=== PATIENT | female | born 1990 | race Caucasian/White ===

== ENCOUNTER 2019-12-11 02:07 | Emergency (ER) | payer BC ==
[2019-12-11] MEDS ORDERED: Sodium Chloride 0.9% 1000 ML 1,000 ML IV STA (02:29)
[2019-12-11] MEDS ORDERED: Hydromorphone 1 mg/ml Ampule IV ONE ×2 (02:29→04:33)
[2019-12-11] MEDS ORDERED: PROTONIX 40 MG IV IV ONE ×2 (02:29→02:35)
[2019-12-11] MEDS ORDERED: Zofran 4 MG/2 ML VIAL IV ONE (02:29)
[2019-12-11] MEDS ORDERED: Sodium Chloride 0.9% 1000 ML 1,000 ML ONE (02:35)
[2019-12-11] MEDS ORDERED: Hydromorphone 1 mg/ml Ampule ONE ×2 (02:35→04:38)
[2019-12-11] MEDS ORDERED: Zofran 4 MG/2 ML VIAL ONE (02:35)
--- NOTE | 2019-12-11 02:37 | ERPHSYRPT ---
- History of Present Illness Time Seen by Provider: 12/11/19 02:30 Patient Subjective Stated Complaint: PT STATES SHE HAS HAD BACK PAIN AND ABDOMINAL PAIN FOR THE LAST WEEK, IT HAS GOTTEN WORSE TONIGHT SO SHE CALLED THE AMBULANCE BECAUSE SHE WAS NOT ABLE TO GET COMFORTABLE. PT STATES SHE HAD VOMITED CLEAR LIQUID, STATES THAT SHE HAD BLOOD IN HER STOOL 1 WEEK AGO Triage Nursing Assessment: PT ALERT AND ORIENTED, MOVING ALL OVER BED STATES THAT SHE CANT GET COMFORTABLE/PAIN RATED 10/10 Physician History: patient is a 29 year old female who presents with severe epigastric pain going through to the back for four and half-hour. Timing/Duration: hour(s) (4.5) Activities at Onset: none Quality: cramping, sharpness, stabbing Abdominal Pain Onset Location: epigastric Pain Radiation: back Severity of Pain-Max: severe Severity of Pain-Current: severe Modifying Factors: Improves With: nothing Associated Symptoms: back, nausea Previous symptoms: no prior history Allergies/Adverse Reactions: clams Allergy (Verified 12/11/19 02:23) iodine Allergy (Verified 12/11/19 02:23) Latex, Natural Rubber Allergy (Verified 12/11/19 02:23) silicone Allergy (Verified 12/11/19 02:23) - Review of Systems Constitutional: No Fever, No Chills Eyes: No Symptoms Ears, Nose, & Throat: No Symptoms Respiratory: No Cough, No Dyspnea Cardiac: No Chest Pain, No Edema, No Syncope Abdominal/Gastrointestinal: Abdominal Pain, Nausea, Vomiting, No Diarrhea Genitourinary Symptoms: No Dysuria Musculoskeletal: No Back Pain, No Neck Pain Skin: No Rash Neurological: No Dizziness, No Focal Weakness, No Sensory Changes Psychological: No Symptoms Endocrine: No Symptoms All Other Systems: Reviewed and Negative - Past Medical History Pertinent Past Medical History: Yes Other Medical History: KIDNEY STONES - Past Surgical History Past Surgical History: Yes Other Surgical History: TUBAL LIGATION - Social History Smoking Status: Never smoker Exposure to second hand smoke: No Drug Use: none - Female History Hx Now: No - Nursing Vital Signs Nursing Vital Signs: Initial Vital Signs Temperature 97.2 F 12/11/19 02:10 Pulse Rate 61 12/11/19 02:10 Respiratory Rate 18 12/11/19 02:10 Blood Pressure 132/80 12/11/19 02:10 O2 Sat by Pulse Oximetry 97 12/11/19 02:10 Pain Scale Pain Intensity 10 - Physical Exam General Appearance: moderate distress, alert Eye Exam: PERRL/EOMI, eyes nml inspection Ears, Nose, Throat Exam: normal ENT inspection, pharynx normal, moist mucous membranes Neck Exam: normal inspection, non-tender, supple, full range of motion Respiratory Exam: normal breath sounds, lungs clear, No respiratory distress Cardiovascular Exam: regular rate/rhythm, normal heart sounds Gastrointestinal/Abdomen Exam: soft, tenderness, guarding, No mass Pelvic Exam: deferred Back Exam: normal inspection, normal range of motion, No CVA tenderness, No vertebral tenderness Extremity Exam: normal inspection, normal range of motion, pelvis stable Neurologic Exam: alert, oriented x 3, cooperative, normal mood/affect, nml cerebellar function, sensation nml, No motor deficits Skin Exam: normal color, warm, dry SpO2: 97 - Course Nursing assessment & vital signs reviewed: Yes - CT Exams Abdomen/Pelvis CT Interpretation: Tele-radiologist Report Ordered Tests: Active Orders 24 hr Category Date Time Status EKG-ER Only STAT Care 12/11/19 02:29 Active IV Insertion STAT Care 12/11/19 02:29 Active ABDOMEN AND PELVIS W/0 CONTRAS [CT] Stat Exams 12/11/19 02:30 Taken CHEST 1 VIEW (PORTABLE) Stat Exams 12/11/19 02:30 Taken AMYLASE Stat Lab 12/11/19 03:08 Completed CBC W DIFF Stat Lab 12/11/19 03:08 Completed CMP Stat Lab 12/11/19 03:08 Completed HCG QUALITATIVE,SERUM Stat Lab 12/11/19 03:08 Completed LIPASE Stat Lab 12/11/19 03:08 Completed Lactic Acid Stat Lab 12/11/19 03:10 Completed PROTIME WITH INR Stat Lab 12/11/19 03:08 Completed TROPONIN Q3H Lab 12/11/19 03:08 Completed TROPONIN Q3H Lab 12/11/19 05:30 Ordered TROPONIN Q3H Lab 12/11/19 08:30 Ordered TROPONIN Q3H Lab 12/11/19 11:30 Ordered TROPONIN Q3H Lab 12/11/19 14:30 Ordered UA W/RFX UR CULTURE Stat Lab 12/11/19 03:08 Completed Medication Summary Discontinued Medications Generic Name Dose Route Start Last Admin Trade Name Freq PRN Reason Stop Dose Admin Hydromorphone HCl 1 mg 12/11/19 02:29 12/11/19 02:40 Hydromorphone 1 Mg/Ml Ampule IV 12/11/19 02:30 1 mg STAT ONE Administration Hydromorphone HCl Confirm 12/11/19 02:35 Hydromorphone 1 Mg/Ml Ampule Administered 12/11/19 02:36 Dose 1 mg .ROUTE .STK-MED ONE Sodium Chloride 1,000 mls @ 999 mls/hr 12/11/19 02:29 12/11/19 02:41 Sodium Chloride 0.9% 1000 Ml IV 12/11/19 03:29 999 mls/hr .Q1H1M STA Administration Sodium Chloride Confirm 12/11/19 02:35 Sodium Chloride 0.9% 1000 Ml Administered 12/11/19 02:36 Dose 1,000 mls @ ud .ROUTE .STK-MED ONE Ondansetron HCl 4 mg 12/11/19 02:29 12/11/19 02:40 Zofran 4 Mg/2 Ml Vial IV 12/11/19 02:30 4 mg STAT ONE Administration Ondansetron HCl Confirm 12/11/19 02:35 Zofran 4 Mg/2 Ml Vial Administered 12/11/19 02:36 Dose 4 mg .ROUTE .STK-MED ONE Pantoprazole Sodium 40 mg 12/11/19 02:29 12/11/19 02:40 Protonix 40 Mg Iv IV 12/11/19 02:30 40 mg STAT ONE Administration Pantoprazole Sodium Confirm 12/11/19 02:35 Protonix 40 Mg Iv Administered 12/11/19 02:36 Dose 40 mg IV .STK-MED ONE Lab/Rad Data: Laboratory Result Diagrams 12/11/19 03:08 12/11/19 03:08 Laboratory Results 12/11/19 12/11/19 12/11/19 Range/Units 03:10 03:08 03:08 WBC (4.0-10.5) K/mm3 RBC (4.1-5.4) M/mm3 Hgb (12.0-16.0) gm/dl Hct (35-47) % MCV (78-100) fl MCH (26-32) pg MCHC (32-36) g/dl RDW (11.5-14.0) % Plt Count (150-450) K/mm3 MPV (7.5-11.0) fl Gran % (36.0-66.0) % Eos # (Auto) (0-0.5) Absolute Lymphs (auto) (1.0-4.6) Absolute Monos (auto) (0.0-1.3) Lymphocytes % (24.0-44.0) % Monocytes % (0.0-12.0) % Eosinophils % (0.00-5.0) % Basophils % (0.0-0.4) % Absolute Granulocytes (1.4-6.9) Basophils # (0-0.4) PT (9.95-12.35) SECONDS INR (0.8-3.0) Sodium (137-145) mmol/L Potassium (3.5-5.1) mmol/L Chloride (98-107) mmol/L Carbon Dioxide (22-30) mmol/L Anion Gap (5-15) MEQ/L BUN (7-17) mg/dL Creatinine (0.52-1.04) mg/dL Estimated GFR ML/MIN Glucose (74-106) mg/dL Lactic Acid 1.5 (0.4-2.0) Calcium (8.4-10.2) mg/dL Total Bilirubin (0.2-1.3) mg/dL AST (14-36) U/L ALT (0-35) U/L Alkaline Phosphatase (38-126) U/L Troponin I (0.000-0.034) ng/mL Serum Total Protein (6.3-8.2) g/dL Albumin (3.5-5.0) g/dL Amylase (30-110) U/L Lipase (23-300) U/L Serum , Qual NEGATIVE (Negative) Urine Color YELLOW (YELLOW) Urine Appearance CLEAR (CLEAR) Urine pH 6.0 (5-6) Ur Specific [place] 1.018 (1.005-1.025) Urine Protein NEGATIVE (Negative) Urine Ketones NEGATIVE (NEGATIVE) Urine Blood NEGATIVE (0-5) Gilbert/ul Urine Nitrite NEGATIVE (NEGATIVE) Urine Bilirubin NEGATIVE (NEGATIVE) Urine Urobilinogen NEGATIVE (0-1) mg/dL Ur Leukocyte Esterase MODERATE (NEGATIVE) Urine WBC (Auto) 3-5 (0-5) /HPF Urine RBC (Auto) 3-5 (0-2) /HPF U Epithel Cells (Auto) RARE (FEW) /HPF Urine Bacteria (Auto) NONE (NEGATIVE) /HPF Urine Mucus (Auto) SLIGHT (NEGATIVE) /HPF Urine Culture Reflexed NO (NO) Urine Glucose 50 (NEGATIVE) mg/dL 12/11/19 12/11/19 12/11/19 Range/Units 03:08 03:08 03:08 WBC (4.0-10.5) K/mm3 RBC (4.1-5.4) M/mm3 Hgb (12.0-16.0) gm/dl Hct (35-47) % MCV (78-100) fl MCH (26-32) pg MCHC (32-36) g/dl RDW (11.5-14.0) % Plt Count (150-450) K/mm3 MPV (7.5-11.0) fl Gran % (36.0-66.0) % Eos # (Auto) (0-0.5) Absolute Lymphs (auto) (1.0-4.6) Absolute Monos (auto) (0.0-1.3) Lymphocytes % (24.0-44.0) % Monocytes % (0.0-12.0) % Eosinophils % (0.00-5.0) % Basophils % (0.0-0.4) % Absolute Granulocytes (1.4-6.9) Basophils # (0-0.4) PT 11.2 (9.95-12.35) SECONDS INR 0.99 (0.8-3.0) Sodium 140 (137-145) mmol/L Potassium 3.2 L (3.5-5.1) mmol/L Chloride 106 (98-107) mmol/L Carbon Dioxide 29 (22-30) mmol/L Anion Gap 8.3 (5-15) MEQ/L BUN 9 (7-17) mg/dL Creatinine 0.46 L (0.52-1.04) mg/dL Estimated GFR > 60.0 ML/MIN Glucose 133 H (74-106) mg/dL Lactic Acid (0.4-2.0) Calcium 7.9 L (8.4-10.2) mg/dL Total Bilirubin 0.20 (0.2-1.3) mg/dL AST 18 (14-36) U/L ALT 14 (0-35) U/L Alkaline Phosphatase 48 (38-126) U/L Troponin I < 0.012 (0.000-0.034) ng/mL Serum Total Protein 6.2 L (6.3-8.2) g/dL Albumin 3.4 L (3.5-5.0) g/dL Amylase 77 (30-110) U/L Lipase 352 H (23-300) U/L Serum , Qual (Negative) Urine Color (YELLOW) Urine Appearance (CLEAR) Urine pH (5-6) Ur Specific [place] (1.005-1.025) Urine Protein (Negative) Urine Ketones (NEGATIVE) Urine Blood (0-5) Gilbert/ul Urine Nitrite (NEGATIVE) Urine Bilirubin (NEGATIVE) Urine Urobilinogen (0-1) mg/dL Ur Leukocyte Esterase (NEGATIVE) Urine WBC (Auto) (0-5) /HPF Urine RBC (Auto) (0-2) /HPF U Epithel Cells (Auto) (FEW) /HPF Urine Bacteria (Auto) (NEGATIVE) /HPF Urine Mucus (Auto) (NEGATIVE) /HPF Urine Culture Reflexed (NO) Urine Glucose (NEGATIVE) mg/dL 12/11/19 Range/Units 03:08 WBC 15.8 H (4.0-10.5) K/mm3 RBC 3.80 L (4.1-5.4) M/mm3 Hgb 11.6 L (12.0-16.0) gm/dl Hct 34.2 L (35-47) % MCV 90.0 (78-100) fl MCH 30.5 (26-32) pg MCHC 33.9 (32-36) g/dl RDW 12.6 (11.5-14.0) % Plt Count 316 (150-450) K/mm3 MPV 9.6 (7.5-11.0) fl Gran % 86.4 H (36.0-66.0) % Eos # (Auto) 0.03 (0-0.5) Absolute Lymphs (auto) 1.32 (1.0-4.6) Absolute Monos (auto) 0.77 (0.0-1.3) Lymphocytes % 8.4 L (24.0-44.0) % Monocytes % 4.9 (0.0-12.0) % Eosinophils % 0.2 (0.00-5.0) % Basophils % 0.1 (0.0-0.4) % Absolute Granulocytes 13.65 H (1.4-6.9) Basophils # 0.02 (0-0.4) PT (9.95-12.35) SECONDS INR (0.8-3.0) Sodium (137-145) mmol/L Potassium (3.5-5.1) mmol/L Chloride (98-107) mmol/L Carbon Dioxide (22-30) mmol/L Anion Gap (5-15) MEQ/L BUN (7-17) mg/dL Creatinine (0.52-1.04) mg/dL Estimated GFR ML/MIN Glucose (74-106) mg/dL Lactic Acid (0.4-2.0) Calcium (8.4-10.2) mg/dL Total Bilirubin (0.2-1.3) mg/dL AST (14-36) U/L ALT (0-35) U/L Alkaline Phosphatase (38-126) U/L Troponin I (0.000-0.034) ng/mL Serum Total Protein (6.3-8.2) g/dL Albumin (3.5-5.0) g/dL Amylase (30-110) U/L Lipase (23-300) U/L Serum , Qual (Negative) Urine Color (YELLOW) Urine Appearance (CLEAR) Urine pH (5-6) Ur Specific [place] (1.005-1.025) Urine Protein (Negative) Urine Ketones (NEGATIVE) Urine Blood (0-5) Gilbert/ul Urine Nitrite (NEGATIVE) Urine Bilirubin (NEGATIVE) Urine Urobilinogen (0-1) mg/dL Ur Leukocyte Esterase (NEGATIVE) Urine WBC (Auto) (0-5) /HPF Urine RBC (Auto) (0-2) /HPF U Epithel Cells (Auto) (FEW) /HPF Urine Bacteria (Auto) (NEGATIVE) /HPF Urine Mucus (Auto) (NEGATIVE) /HPF Urine Culture Reflexed (NO) Urine Glucose (NEGATIVE) mg/dL - Progress Progress: improved Will see patient in: ED (the patient requested to be sent [facility]. We spoke with Dr. Majano who accepted her in ER to ER transfer.) - Departure Departure Disposition: Transfer (patient request [facility]) Clinical Impression: Acute cholecystitis Condition: Stable Critical Care Time: No Referrals: DOCTOR,NO FAMILY [NON-STAFF PHY W/O PRIVILEGES] - Instructions: Gallstones (DC) Additional Instructions: go directly to the ER at [facility]
[2019-12-11 03:10] LABS: Absolute Neutrophil Ct (ANC) 13.65 (1.4-6.9); BASOPHIL % 0.1 % (0.0-0.4); Basophil (Absolute #) 0.02 (0-0.4); Eosinophil % 0.2 % (0.00-5.0); Eosinophil (Absolute #) 0.03 (0-0.5); Hematocrit 34.2 % (35-47); Hemoglobin 11.6 gm/dl (12.0-16.0); Lymphocyte (Absolute #) 1.32 (1.0-4.6); Lymphocytes % 8.4 % (24.0-44.0); Mean Corpuscular Hemoglobin 30.5 pg (26-32); Mean Corpuscular Hgb Concent. 33.9 g/dl (32-36); Mean Platelet Volume 9.6 fl (7.5-11.0); Monocyte (Absolute #) 0.77 (0.0-1.3); Monocytes % 4.9 % (0.0-12.0); Neutrophil % 86.4 % (36.0-66.0); Platelet Count 316 K/mm3 (150-450); Red Cell Distribution Width 12.6 % (11.5-14.0); White Blood Count 15.8 K/mm3 (4.0-10.5)
[2019-12-11 03:17] LABS: INR 0.99 (0.8-3.0); PROTIME 11.2 SECONDS (9.95-12.35)
[2019-12-11 03:23] LABS: Appearance CLEAR (CLEAR); Bilirubin NEGATIVE (NEGATIVE); Blood NEGATIVE Ery/ul (0-5); Epithelial Cells RARE /HPF (FEW); Glucose 50 mg/dL (NEGATIVE); Ketones NEGATIVE (NEGATIVE); Leukocyte Esterase MODERATE (NEGATIVE); Mucus SLIGHT /HPF (NEGATIVE); Nitrite NEGATIVE (NEGATIVE); Protein,Urine Dip NEGATIVE (Negative); Specific Gravity 1.018 (1.005-1.025); Urobilinogen NEGATIVE mg/dL (0-1)
[2019-12-11 03:29] LABS: ALBUMIN 3.4 g/dL (3.5-5.0); ALKALINE PHOSPHATASE 48 U/L (38-126); AMYLASE 77 U/L (30-110); ANION GAP 8.3 MEQ/L (5-15); BLOOD UREA NITROGEN 9 mg/dL (7-17); CHLORIDE 106 mmol/L (98-107); Calcium 7.9 mg/dL (8.4-10.2); Carbon Dioxide 29 mmol/L (22-30); Creatinine 1 0.46 mg/dL (0.52-1.04); Glucose 133 mg/dL (74-106); LIPASE 352 U/L (23-300); Potassium 3.2 mmol/L (3.5-5.1); SGOT/AST 18 U/L (14-36); SGPT/ALT 14 U/L (0-35); SODIUM 140 mmol/L (137-145); Total Protein 6.2 g/dL (6.3-8.2)
[2019-12-11 04:34] VITALS: BP 127/80; PULSE 76; O2SAT 100
--- NOTE | 2019-12-11 08:41 | XRAY ---
Indication: Epigastric pain. Comparison: None Portable chest demonstrates normal heart, lungs, and bony thorax.
--- NOTE | 2019-12-11 08:46 | XRAY ---
Indication: Epigastric pain. Nausea. Multiple contiguous axial images obtained through the abdomen and pelvis without contrast as ordered. Comparison: None Lung bases demonstrate minimal bibasilar dependent atelectasis. No infiltrate or effusion. Heart is not enlarged. Stomach is distended with food/fluid. Noncontrasted stomach and bowel loops appear nonobstructed. Appendix not seen. Gallbladder is moderately distended without gallstones or biliary distention. Posterior right lobe of liver demonstrates a 1.7 cm ovoid hypodense lesion, cyst versus hemangioma. Nonobstructing punctate right renal calculus. No free fluid/air. Remaining liver, pancreas, spleen, adrenal glands, kidneys, ureters, bladder, uterus, and aorta appear unremarkable for noncontrast exam. Osseous structures intact. Incidental L5-S1 broad-based disc bulge. Impression: 1. Distended gallbladder. Gallbladder should be contracted given the recent meal. Gallbladder sonogram may yield further information. 2. Hepatic hypodense lesion, cyst versus hemangioma in this demographic. CT liver with contrast exam using hemangioma protocol may yield further information if clinically warranted. 3. Nonobstructing right renal micro-calculus. 4. Incidental L5-S1 broad-based disc bulge better evaluated with outpatient MRI if clinically warranted. Comment: Preliminary interpretation was made by [facility] who does not report incidental distended gallbladder and lumbar disc bulge.
== END 2019-12-11 04:45 | disposition short-term general hospital (02) ==
LOC: ED 02:07
DX: K81.0 Acute cholecystitis (principal); M54.9 Dorsalgia, unspecified; R10.13 Epigastric pain; R11.2 Nausea with vomiting, unspecified
CPT/HCPCS: 36000; 36415; 71045; 74176; 80053; 81001; 81025; 82150; 83605; 83690; 84484; 85025; 85610; 93005; 96360; 96374; 96375; 99285; J1170; J2405